=== PATIENT | female | born 1960 | race Caucasian/White ===

== ENCOUNTER 2020-12-30 13:59 | Emergency (ER) | payer OTHER ==
[~2020-12-30] VITALS: Ht 167.6 cm; Wt 86.2 kg
[2020-12-30] MEDS ORDERED: IBUPROFEN 600 MG TAB PO STA (14:31)
[2020-12-30] MEDS ORDERED: LEVOTHYROXINE112 MC1 (14:35)
[2020-12-30] MEDS ORDERED: TRIAMTERENE-HCTZ1 EA PO (14:35)
[2020-12-30] MEDS ORDERED: DEXILANT30 MG (14:35)
[2020-12-30] MEDS ORDERED: IBUPROFEN 600 MG TAB ONE (14:46)
[2020-12-30] MEDS ORDERED: IBUPROFEN800 MG PO (15:47)
== END 2020-12-30 15:56 | disposition home or self-care (01) ==
LOC: FSED 14:23
DX: S93.402A Sprain of unspecified ligament of left ankle, initial encounter (principal); X50.1XXA Overexertion from prolonged static or awkward postures, initial encounter; Y93.01 Activity, walking, marching and hiking; Y99.0 Civilian activity done for income or pay; E03.9 Hypothyroidism, unspecified
CPT/HCPCS: 99284